=== PATIENT | female | born 1970 | race Caucasian/White ===

== ENCOUNTER 2016-12-17 06:27 | Observation (INO) | payer BC ==
[2016-12-16 10:58] LABS: BASOPHILS 0.4 %; BASOPHILS ABSOLUTE 0.02 10/3/uL (0.0-0.16); EOSINOPHILS 3.9 %; EOSINOPHILS ABSOLUTE 0.21 10/3/uL (0.0-0.53); HEMATOCRIT 39.2 % (36.0-48.0); IMMATURE GRANULOCYTES 0.4 %; IMMATURE GRANULOCYTES ABSOLUTE 0.02 10/3/uL (0.0-0.11); LYMPHOCYTES 35.4 %; LYMPHOCYTES ABSOLUTE 1.92 10/3/uL (0.67-4.30); MEAN CORPUS HGB CONC 33.2 g/dL (32.0-36.0); MEAN CORPUSCULAR HEMOGLOB 32.2 pg (26.0-34.0); MEAN PLATELET VOLUME 9.3 fL (9.2-13.0); MONOCYTES 7.2 %; MONOCYTES ABSOLUTE 0.39 10/3/uL (0.21-1.20); NEUTROPHILS 52.7 %; NEUTROPHILS ABSOLUTE 2.87 10/3/uL (2.02-8.40); PLATELET COUNT 208 10/3/uL (150-400); RBC DISTRIBUTION WIDTH 11.7 % (12.0-16.0); RED CELL COUNT 4.04 10/6/uL (4.0-5.6); WHITE BLOOD CELLS 5.4 10/3/uL (4.5-10.5)
[2016-12-16 11:01] LABS: MANUAL DIFF NO %
[2016-12-16 11:12] LABS: A/G RATIO 0.9 (0.7-1.9); ALBUMIN 3.2 G/DL (3.5-5.0); ALKALINE PHOSPHATASE 69 U/L (45-117); CALCIUM, SERUM 8.7 MG/DL (8.5-10.4); CHLORIDE, SERUM 106 MMOL/L (96-112); CO2 (CARBON DIOXIDE) 29 MMOL/L (24-34); CREATININE 0.76 MG/DL (0.55-1.02); GFR AFRICAN AMERICAN 108 ML/MIN (>=60); GFR NON AFRICAN AMERICAN 93 ML/MIN (>=60); GLOBULIN 3.4 G/DL (2.5-4.1); SGOT(AST) 6 U/L (5-40); SGPT(ALT) 10 U/L (5-65); SODIUM, SERUM 144 MMOL/L (135-148); TOTAL BILIRUBIN 0.3 MG/DL (0-1.2); TOTAL PROTEIN 6.6 G/DL (6.0-8.5)
[2016-12-16 11:13] LABS: BUN (BLOOD UREA NITROGEN) 6 MG/DL (6-23); GLUCOSE, SERUM 133 MG/DL (60-99); POTASSIUM, SERUM 3.7 MMOL/L (3.5-5.3)
--- NOTE | ~2016-12-17 | OP ---
Record Of Operation [facility] [address] [place]. [address] NAME: JENELLE ARCE : 68 STATUS : DIS Bhavya PAT#: [id number] AGE: 46 ADM/REG DATE : 12/17/16 MR#: [id number] REPORT SERV DATE: 12/20/16 DICTATED BY: MARIA E STANLEY DATE: 12/17/16 REPORT STATUS : Draft TRANSCRIBED BY: MODLinwood DATE: 12/17/16 DATE OF PROCEDURE: PREOPERATIVE DIAGNOSIS: Right breast HER2 positive, node positive breast cancer, status post neoadjuvant chemotherapy. POSTOPERATIVE DIAGNOSIS: Right breast HER2 positive, node positive breast cancer, status post neoadjuvant chemotherapy. PROCEDURES: 1. Right breast simple mastectomy. 2. Right axillary sentinel node biopsy. DRAINS: The drain 15 round was placed in the lateral inferior axillary hairline and secured with a nylon. INDICATION FOR THE PROCEDURE: Ms. 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 She completed chemotherapy quite some time ago and is ready for surgery. She appears to still have some malignancy in the breast on recent imaging including a large amount of calcifications. After the patient had met with Dr. Johnson, he felt that she was not going to be a good candidate for immediate first-stage reconstruction secondary to some psych issues, and therefore, we are moving forward with a delayed plan for reconstruction. The patient presented for lymphoscintigraphy scan showing good uptake in the right axilla, methylene blue will not be utilized. OPERATIVE FINDINGS: After appropriate consent was noted on the chart, the patient was taken to the operating room in supine position. She was placed under general anesthesia without any complications. The right breast was prepped and draped in the sterile fashion. An incision was made in elliptical fashion to include the nipple-areolar complex and the majority of the skin on the anterior chest wall. Sharp dissection was carried down to the level of breast parenchyma and flaps created in all directions to the extent of the breast parenchyma. Dissection was carried down to the pectoralis major fascia, which was taken off the muscle with breast intact. The breast was divided from the axillary fat pad and the axillary tail, marked with a suture and sent for permanent pathology. The wound was copiously irrigated with warm saline and hemostasis achieved. The gamma probe was placed into the axilla and good uptake noted in a single lymph node. Its ex-vivo count was approximately 30,000. It was sent for an immediate evaluation by Pathology, noted to be negative. The deep dermal tissues were reapproximated after local anesthetic had been instilled into the muscle. Interrupted Vicryl sutures of 3-0 were utilized to reapproximate the deep dermal tissue. This was followed by a Monocryl on the skin. The skin was cleansed and dried. Mastisol and Steri-Strips applied. Burn fluff and a binder overlaid. The patient was awoken from anesthesia without complication and taken to the PACU in stable condition for recovery. All counts were correct at the end of the case. ESTIMATED BLOOD LOSS: 150 mL. Record Of Operation [address] [address] NAME: JENELLE ARCE : 68 STATUS : DIS Bhavya PAT#: [id number] AGE: 46 ADM/REG DATE : 12/17/16 MR#: [id number] REPORT SERV DATE: 12/20/16 DICTATED BY: MARIA E STANLEY DATE: 12/17/16 REPORT STATUS : Draft TRANSCRIBED BY: LUIS DATE: 12/17/16 COMPLICATIONS: None. SPECIMENS: Right breast and right axillary sentinel node x1. SUBHASH/LUIS Maria E Stanley MD / [id number] CC: Maria E Stanley MD [facility] MD Seema Serrano MD
[~2016-12-17 06:27] MED LIST: BUSPAR10 PO; COGEN1 PO; DEPAKOT500 PO; ENDOCET1 TAB PO; RISP2 PO
[2016-12-18] MEDS ORDERED: NORCO1 TA1 PO (11:06)
[2016-12-18] MEDS ORDERED: CIP5 PO (11:07)
== END 2016-12-18 11:45 | disposition home or self-care (01) ==
LOC: SDC 06:27 → SDC/OF 12:44 → 4SO 17:09
PROVIDERS: Surgery Surgical Oncology
PROC: 07B50ZX Excision of Right Axillary Lymphatic, Open Approach, Diagnostic (ICD-10-PCS; 2016-12-17)
PROC: 0HTT0ZZ Resection of Right Breast, Open Approach (ICD-10-PCS; principal; 2016-12-17 09:45)
DX: D05.91 Unspecified type of carcinoma in situ of right breast (principal); F31.9 Bipolar disorder, unspecified; Z88.0 Allergy status to penicillin; Z88.1 Allergy status to other antibiotic agents
CPT/HCPCS: 71020; 78195; 80053; 85025; 88307; 88331; 88332; 88342; 93005; 96374; 96376; A9270-GY; A9541; G0378; J0360; J0690; J1170; J1885; J2250; J2270; J2405; J3010